=== PATIENT | female | born 1960 | race Caucasian/White ===

== ENCOUNTER 2017-09-19 15:38 | Emergency (ER) | payer MEDICAID ==
[~2017-09-19] VITALS: Ht 160 cm; Wt 72.6 kg
[2017-09-19 15:53] VITALS: Ht 160 cm; Wt 72.6 kg
[2017-09-19 17:03] VITALS: BP 162/83
== END 2017-09-19 17:03 | disposition home or self-care (01) ==
LOC: ED 15:38
DX: J11.1 Influenza due to unidentified influenza virus with other respiratory manifestations (principal)

== ENCOUNTER 2018-02-18 20:58 | Emergency (ER) | payer MEDICAID ==
[~2018-02-18] VITALS: Ht 157.5 cm; Wt 72.6 kg
[2018-02-18 20:59] VITALS: Ht 157.5 cm; Wt 72.6 kg
[2018-02-18 23:06] VITALS: BP 128/91
== END 2018-02-18 23:06 | disposition home or self-care (01) ==
LOC: ED 20:58
PROC: 3E023NZ Introduction of Analgesics, Hypnotics, Sedatives into Muscle, Percutaneous Approach (ICD-10-PCS; principal; 2018-02-18)
PROC: 2W3LX1Z Immobilization of Right Lower Extremity using Splint (ICD-10-PCS; 2018-02-18)
DX: S93.401A Sprain of unspecified ligament of right ankle, initial encounter (principal); I10 Essential (primary) hypertension; X58.XXXA Exposure to other specified factors, initial encounter; Y93.11 Activity, swimming; Y92.831 Amusement park as the place of occurrence of the external cause
CPT/HCPCS: J1885; Q0092

== ENCOUNTER 2018-08-30 17:42 | Emergency (ER) | payer MEDICAID ==
[~2018-08-30] VITALS: Ht 157.5 cm; Wt 74.8 kg
[2018-08-30 18:11] VITALS: Ht 157.5 cm; Wt 74.8 kg
[2018-08-30 19:29] LABS: BASOPHIL % 0.4 % (0-2); PLATELET COUNT 308 x10^3mcL (130-400); RED CELL DISTRIBUTION WIDTH 14.1 % (11.5-14.5)
[2018-08-30 20:04] LABS: CALCIUM 8.7 mg/dL (8.5-10.1); CARBON DIOXIDE 25.8 mmol/L (21-32); CHLORIDE SERUM 106 mmol/L (98-107); CREATININE SERUM 0.7 mg/dL (0.6-1.0); GFR1 > 60 mL/min; GLUCOSE SERUM 107 mg/dL (74-106); POTASSIUM SERUM 3.7 mmol/L (3.5-5.1); SODIUM SERUM 142 mmol/L (136-145)
[2018-08-30 20:09] LABS: ALKALINE PHOSPHATASE 117 U/L (46-116); ALT/SGPT 27 U/L (14-59); AST/SGOT 19 U/L (15-37); BILIRUBIN TOTAL 0.23 mg/dL (0.20-1.00); TOTAL PROTEIN, SERUM 7.2 g/dL (6.4-8.2)
[2018-08-30 20:10] LABS: ALBUMIN 3.3 g/dL (3.4-5.0)
[2018-08-30 21:16] VITALS: BP 122/84
== END 2018-08-30 21:16 | disposition home or self-care (01) ==
LOC: ED 17:42
PROVIDERS: Emergency Medicine
DX: J20.9 Acute bronchitis, unspecified (principal); I10 Essential (primary) hypertension
CPT/HCPCS: 36415; 87804; Q0092

== ENCOUNTER 2019-05-15 14:33 | Emergency (ER) | payer MEDICAID ==
[~2019-05-15] VITALS: Ht 162.6 cm; Wt 73.5 kg
[2019-05-15 14:39] VITALS: BP 154/64; Ht 162.6 cm; Wt 73.5 kg
== END 2019-05-15 17:52 | disposition home or self-care (01) ==
LOC: ED 14:33
DX: T78.40XA Allergy, unspecified, initial encounter (principal); I10 Essential (primary) hypertension; X58.XXXA Exposure to other specified factors, initial encounter

== ENCOUNTER 2019-06-08 16:01 | Emergency (ER) | payer MEDICAID ==
[~2019-06-08] VITALS: Ht 157.5 cm; Wt 71.7 kg
[2019-06-08 16:11] VITALS: Ht 157.5 cm; Wt 71.7 kg
[2019-06-08 16:42] LABS: BASOPHIL % 1.8 % (0-2); PLATELET COUNT 264 x10^3mcL (130-400)
[2019-06-08 16:47] LABS: CALCIUM 8.4 mg/dL (8.5-10.1); CARBON DIOXIDE 28.3 mmol/L (21-32); CHLORIDE SERUM 105 mmol/L (98-107); CREATININE SERUM 0.7 mg/dL (0.6-1.0); GFR1 > 60 mL/min; GLUCOSE SERUM 101 mg/dL (74-106); POTASSIUM SERUM 4.2 mmol/L (3.5-5.1); SODIUM SERUM 138 mmol/L (136-145)
[2019-06-08 16:51] LABS: ALBUMIN 3.4 g/dL (3.4-5.0); ALKALINE PHOSPHATASE 114 U/L (46-116); ALT/SGPT 21 U/L (14-59); AST/SGOT 16 U/L (15-37); BILIRUBIN TOTAL 0.2 mg/dL (0.20-1.00); LIPASE 93 IU/L (73-393); TOTAL PROTEIN, SERUM 7.2 g/dL (6.4-8.2)
[2019-06-08 17:49] VITALS: BP 138/70
== END 2019-06-08 17:49 | disposition home or self-care (01) ==
LOC: ED 16:01
PROVIDERS: Emergency Medicine
DX: K57.32 Diverticulitis of large intestine without perforation or abscess without bleeding (principal); I10 Essential (primary) hypertension
CPT/HCPCS: J2270; J2405; J7030